=== PATIENT | male | born 1960 | race African-American/Black ===

== ENCOUNTER 2017-07-04 10:15 | Emergency (ER) | payer MEDICAID ==
[~2017-07-04] VITALS: Ht 182.9 cm; Wt 78.0 kg
--- NOTE | 2017-07-04 10:53 | Emergency Room Report ---
History of Present Illness General Chief Complaint: Diarrhea Source: Patient Present Illness HPI Patient presents with complaints of diarrhea he reports that the symptoms started on Friday And they have persisted he has been having cramping in his abdomen diffusely He noticed that the stool was somewhat yellowish in color and as it persisted he was concerning came to the ER Denies any blood in stool Patient had a seafood dinner the day before this initiated Denies any fevers denies any chest pain Patient did report to triage headache and general weakness At this time denies any neck pain or photophobia Allergies: Coded Allergies: No Known Allergies (Unverified , 07/04/17) Patient History Past Medical History: see triage record Pertinent Family History: none Reviewed Nursing Documentation: PMH: Agreed, PSxH: Agreed Nursing Documentation-PMH Past Medical History: No History, Except For Review of Systems All Other Systems: negative except mentioned in HPI Physical Exam Vital Signs Date Time Temp Pulse Resp B/P (MAP) Pulse Ox O2 Delivery O2 Flow Rate FiO2 07/04/17 10:20 97.5 86 14 105/69 94 Room Air Sp02 EP Interpretation: reviewed, normal General Appearance: well appearing, no apparent distress Head: normocephalic, atraumatic Eyes: bilateral eye PERRL, bilateral eye EOMI ENT: hearing grossly normal, normal pharynx, TMs + canals normal, uvula midline Neck: full range of motion, supple, no meningismus, no bony tend Respiratory: lungs clear, normal breath sounds, no rhonchi, no respiratory distress, no retraction, no accessory muscle use Cardiovascular #1: normal peripheral pulses, regular rate, rhythm, no edema, no gallop, no JVD, no murmur Gastrointestinal: normal bowel sounds, non tender, soft, no mass, no organomegaly, non-distended, no guarding, no hernia, no pulsatile mass, no rebound Genitourinary: no CVA tenderness Musculoskeletal: normal inspection Neurologic: oriented x3, responsive, 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, motor strength/ tone normal, sensory intact Psychiatric: mood/affect normal Skin: normal color, no rash, warm/dry, palpation normal Lymphatic: normal inspection, no adenopathy Medical Decision Making Diagnostic Impression: Primary Impression: Diarrhea ER Course With the history exam and presentation, multiple differentials considered, including but not limited to appendicitis, gastritis, cholecystitis, diverticulitis Patient however did have appendectomy at 11 years old Patient's blood work is at baseline levels Patient has done significantly better at this time given the duration of symptoms he was placed on oral antibiotics for a few days and will return with any changes Labs Test 07/04/17 11:00 White Blood Count 5.3 K/UL (4.8-10.8) Red Blood Count 4.73 M/UL (4.70-6.10) Hemoglobin 15.4 G/DL (14.2-18.0) Hematocrit 44.7 % (42.0-52.0) Mean Corpuscular Volume 95 FL (80-99) Mean Corpuscular Hemoglobin 32.5 PG (27.0-31.0) Mean Corpuscular Hemoglobin Concent 34.4 G/DL (32.0-36.0) Red Cell Distribution Width 11.4 % (11.6-14.8) Platelet Count 168 K/UL (150-450) Mean Platelet Volume 6.8 FL (6.5-10.1) Neutrophils (%) (Auto) % (45.0-75.0) Lymphocytes (%) (Auto) % (20.0-45.0) Monocytes (%) (Auto) % (1.0-10.0) Eosinophils (%) (Auto) % (0.0-3.0) Basophils (%) (Auto) % (0.0-2.0) Differential Total Cells Counted 100 Neutrophils % (Manual) 62 % (45-75) Lymphocytes % (Manual) 16 % (20-45) Monocytes % (Manual) 21 % (1-10) Eosinophils % (Manual) 0 % (0-3) Basophils % (Manual) 0 % (0-2) Band Neutrophils 1 % (0-8) Platelet Estimate Adequate Platelet Morphology Normal Sodium Level 138 MMOL/L (136-145) Potassium Level 3.6 MMOL/L (3.5-5.1) Chloride Level 103 MMOL/L (98-107) Carbon Dioxide Level 27 MMOL/L (21-32) Anion Gap 8 mmol/L (5-15) Blood Urea Nitrogen 10 mg/dL (7-18) Creatinine 1.1 MG/DL (0.55-1.30) Estimat Glomerular Filtration Rate > 60 mL/min (>60) Glucose Level 96 MG/DL (74-106) Calcium Level 8.7 MG/DL (8.5-10.1) Total Bilirubin 0.4 MG/DL (0.2-1.0) Aspartate Amino Transf (AST/SGOT) 16 U/L (15-37) Alanine Aminotransferase (ALT/SGPT) 15 U/L (12-78) Alkaline Phosphatase 35 U/L (46-116) Total Protein 6.7 G/DL (6.4-8.2) Albumin 2.9 G/DL (3.4-5.0) Globulin 3.8 g/dL Albumin/Globulin Ratio 0.8 (1.0-2.7) Lipase 52 U/L (73-393) Last Vital Signs Date Time Temp Pulse Resp B/P (MAP) Pulse Ox O2 Delivery O2 Flow Rate FiO2 07/04/17 10:20 97.5 86 14 105/69 94 Room Air Status: improved Disposition: HOME, SELF-CARE Condition: Improved Scripts Famotidine (PEPCID) 40 Mg Tablet 40 MG PO DAILY, #7 TAB 0 Refills Prov: ALVARO TAN D.O. 07/04/17 Ciprofloxacin Hcl* (CIPROFLOXACIN HCL*) 500 Mg Tablet 500 MG ORAL Q12H, #10 TAB 0 Refills Prov: ALVARO TAN D.O. 07/04/17 Additional Instructions: Patient is provided with the discharge instructions notified to follow up with primary doctor in the next 2-3 days otherwise return to the er with any worsening symptoms. Please note that this report is being documented using [employer] technology. This can lead to erroneous entry secondary to incorrect interpretation by the dictating instrument. ALVARO TAN D.O. Jul 04, 2017 10:53
[2017-07-04] MEDS ORDERED: Metoclopramide 10mg/2ml Inj IVP ONE (11:00)
[2017-07-04] MEDS ORDERED: DiphenhydrAMINE 50mg/ml Inj IVP ONE (11:00)
[2017-07-04 11:22] LABS: HEMATOCRIT 44.7 % (42.0-52.0); HEMOGLOBIN 15.4 G/DL (14.2-18.0); MEAN CORPUSCULAR VOLUME 95 FL (80-99); PLATELET COUNT 168 K/UL (150-450); RED BLOOD COUNT 4.73 M/UL (4.70-6.10); RED CELL DISTRIBUTION WIDTH 11.4 % (11.6-14.8); WHITE BLOOD COUNT 5.3 K/UL (4.8-10.8)
[2017-07-04 11:29] LABS: ANION GAP 8 mmol/L (5-15); BLOOD UREA NITROGEN 10 mg/dL (7-18); CALCIUM 8.7 MG/DL (8.5-10.1); CARBON DIOXIDE 27 MMOL/L (21-32); CHLORIDE 103 MMOL/L (98-107); CREATININE 1.1 MG/DL (0.55-1.30); POTASSIUM 3.6 MMOL/L (3.5-5.1); SODIUM 138 MMOL/L (136-145)
[2017-07-04 11:35] LABS: ALANINE AMINOTRANSFERASE 15 U/L (12-78); ALBUMIN 2.9 G/DL (3.4-5.0); ALBUMIN/GLOBULIN RATIO 0.8 (1.0-2.7); ALKALINE PHOSPHATASE 35 U/L (46-116); ASPARTATE AMINO TRANSFERASE 16 U/L (15-37); BILIRUBIN,TOTAL 0.4 MG/DL (0.2-1.0)
[2017-07-04] MEDS ORDERED: PEPCID40 MG PO (12:41)
[2017-07-04] MEDS ORDERED: CIPROFLOXACIN500 M2 ORAL (12:41)
[2017-07-04 12:50] VITALS: BP 99/64
[2017-07-04 12:53] VITALS: BP 99/64
== END 2017-07-04 12:58 | disposition home or self-care (01) ==
LOC: EMR 11:10
DX: R19.7 Diarrhea, unspecified (principal)
CPT/HCPCS: 36415; 80053; 83690; 85007; 85025; 96374; 96375; 99284; J1200; J2765